=== PATIENT | female | born 1970 | race Native Hawaiian/Other Pacific Islander ===

== ENCOUNTER 2020-08-26 07:34 | Emergency (ER) | payer OTHER ==
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
--- NOTE | 2020-08-26 10:16 | XRay Report ---
Cervical spine 3 views INDICATION: Neck pain following injury IMPRESSION: No fracture or subluxation is identified. No prevertebral soft tissue edema. Slight multi level discogenic degenerative changes at C4-C5, C5-C6 and C6-C7. Signer Name: Scooby Gonzalez MD Signed: 08/26/2020 10:12 AM Workstation Name: [id number]
--- NOTE | 2020-08-26 10:17 | XRay Report ---
Lumbar spine 3 views INDICATION: Low back pain IMPRESSION: The lumbar spinal alignment is normal. Moderate degenerative discogenic change as well as facet arthropathy causing mild bilateral neural foraminal narrowing at L5-S1. Signer Name: Scooby Gonzalez MD Signed: 08/26/2020 10:12 AM Workstation Name: [id number]
[2020-08-26 11:03] VITALS: BP 157/81
== END 2020-08-26 11:07 | disposition home or self-care (01) ==
LOC: ED 07:34
DX: S16.1XXA Strain of muscle, fascia and tendon at neck level, initial encounter (principal); S39.012A Strain of muscle, fascia and tendon of lower back, initial encounter; Z79.899 Other long term (current) drug therapy; V49.49XA Driver injured in collision with other motor vehicles in traffic accident, initial encounter; Y93.89 Activity, other specified; Y92.410 Unspecified street and highway as the place of occurrence of the external cause; Y99.8 Other external cause status
CPT/HCPCS: 72040; 72100